=== PATIENT | male | born 2000 | race Caucasian/White ===

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

== ENCOUNTER 2022-05-04 16:10 | Emergency (ER) | payer SELFPAY ==
[~2022-05-04] VITALS: Ht 182.9 cm; Wt 108.9 kg
[2022-05-04 16:32] VITALS: BP 150/91
[2022-05-04] MEDS ORDERED: IBUPROFEN 600 MG TAB PO ONE (18:15)
[2022-05-04] MEDS ORDERED: DEXAMETHASONE 10 MG/ML VIAL IM ONE (18:15)
[2022-05-04] MEDS ORDERED: AMOX-1230 PO (18:46)
[2022-05-04] MEDS ORDERED: IBUP-2213 PO (18:46)
[2022-05-04] MEDS ORDERED: MUPI2CRE22 TP (18:46)
--- NOTE | 2022-05-04 18:54 | NUR ---
Patient discharged with v/s stable. Written and verbal after care instructions given and explained. Patient alert, oriented and verbalized understanding of instructions. Ambulatory with steady gait. All questions addressed prior to discharge. ID band removed. Patient advised to follow up with PMD. Rx of AUGMENTIN, MOTRIN given. Patient educated on indication of medication including possible reaction and side effects. Opportunity to ask questions provided and answered.
== END 2022-05-04 18:54 | disposition home or self-care (01) ==
LOC: MED 16:10
DX: J03.90 Acute tonsillitis, unspecified (principal); L01.00 Impetigo, unspecified
CPT/HCPCS: 96372; 99283; J1100

== ENCOUNTER 2022-05-06 08:42 | Emergency (ER) | payer SELFPAY ==
[~2022-05-06] VITALS: Ht 182.9 cm; Wt 111.1 kg
[~2022-05-06 08:42] MED LIST changes: +AMOX-1230 PO; +IBUP-2213 PO; +MUPI2CRE22 TP
[2022-05-06 08:48] VITALS: BP 144/71
--- NOTE | 2022-05-06 08:51 | NUR ---
PT AMBULATED TO BED 12
--- NOTE | 2022-05-06 09:31 | NUR ---
Strep, HSV, throat culture swabs walked to lab and handed to CPT Jem
--- NOTE | 2022-05-06 10:00 | NUR ---
22/M PRESENTS TO ED FOR RASH TO FACE. PATIENT STATES HE WAS SEEN 2 DAYS AGO FOR SAME SYMPTOMS AND WAS DX WITH IMPETIGO. PATIENT REPORTS HE HAS BEEN TAKING THE MEDS PRESCRIBED BUT BELIEVES SYMPTOMS ARE GETTING WORSE AND SPREADING MORE THROUGHOUT HIS FACE. PATIENT DENIES SOB.
[2022-05-06] MEDS ORDERED: ACYC400T14 PO (10:36)
[2022-05-06] MEDS ORDERED: POLY10SO OP (10:38)
--- NOTE | 2022-05-06 11:00 | NUR ---
Patient discharged with v/s stable. Written and verbal after care instructions SHINGLES given and explained. Patient alert, oriented and verbalized understanding of instructions. Ambulatory with steady gait. All questions addressed prior to discharge. ID band removed. Patient advised to follow up with PMD. Rx of ACYCLOVIR AND POLYTRIM EYE DROPS given. Patient educated on indication of medication including possible reaction and side effects. Opportunity to ask questions provided and answered.
[2022-05-08] MEDS ORDERED: CEPH-588 PO (13:19)
[2022-05-08] MEDS ORDERED: SULF-59 PO (13:19)
== END 2022-05-06 11:00 | disposition home or self-care (01) ==
LOC: MED 08:42
DX: B02.1 Zoster meningitis (principal); J45.909 Unspecified asthma, uncomplicated; Z79.899 Other long term (current) drug therapy
CPT/HCPCS: 36415; 87070; 87075; 87081; 87205; 87252; 99283

== ENCOUNTER 2022-07-19 14:28 | Emergency (ER) | payer MEDICAID ==
[~2022-07-19] VITALS: Ht 181.6 cm; Wt 113.9 kg
[~2022-07-19 14:28] MED LIST changes: +ACYC400T14 PO; +CEPH-588 PO; +POLY10SO OP; +SULF-59 PO
[2022-07-19 15:13] VITALS: BP 108/60
[2022-07-19] MEDS ORDERED: MUPI2CRE22 TP (15:43)
[2022-07-19] MEDS ORDERED: SULF-59 PO (15:43)
[2022-07-19 15:49] VITALS: BP 108/60
--- NOTE | 2022-07-19 15:58 | NUR ---
Patient discharged with v/s stable. Written and verbal after care instructions given and explained. Patient alert, oriented and verbalized understanding of instructions. Ambulatory with steady gait. All questions addressed prior to discharge. ID band removed. Patient advised to follow up with PMD. Rx of MUPIROCIN, BACTRIM (SENT) given. Patient educated on indication of medication including possible reaction and side effects. Opportunity to ask questions provided and answered. WORK NOTE GIVEN
== END 2022-07-19 15:49 | disposition home or self-care (01) ==
LOC: MED 14:28
DX: L01.00 Impetigo, unspecified (principal); J45.909 Unspecified asthma, uncomplicated; Z79.899 Other long term (current) drug therapy; Z79.1 Long term (current) use of non-steroidal anti-inflammatories (NSAID); Z79.2 Long term (current) use of antibiotics
CPT/HCPCS: 99283